=== PATIENT | female | born 1940 | race Caucasian/White ===

== ENCOUNTER 2017-10-29 15:48 | Emergency (ER) | payer OTHER ==
--- NOTE | 2017-10-29 16:10 | EDPHY ---
HPI/HX/ROS/PE/MDM Narrative: CHIEF COMPLAINT: Head trauma, perseverating after mechanical fall, Limited trauma plus HISTORY OF PRESENT ILLNESS: The patient is a 77 y/o female with a history of hypertension arriving via EMS as a limited trauma plus activation for head trauma and perseverating after a mechanical fall from standing. She was leaving a friend's house when she missed a step and fell, hitting her head with approximately 10 cc of blood on the ground. The fall was witnessed by her daughter who reports she lost consciousness for 20 second after striking the back of her head. She has no memory of the fall. She has associated headache, neck pain, and jaw pain. She denies numbness, tingling, weakness, chest pain, abdominal pain, or any other injuries. She denies history of blood clots. She denies taking blood thinners, except for aspirin. No chest pain, palpitations, shortness of breath, lightheadedness, or syncope associated with the fall. Patient reports being otherwise well. No recent vomiting or diarrhea. No recent fevers or chills, urinary complaints, lightheadedness. REVIEW OF SYSTEMS: Aside from elements discussed in the HPI, a comprehensive 10-point review of systems was reviewed and is negative. PAST MEDICAL HISTORY: Hypertension SOCIAL HISTORY: Daughter at bedside, lives in [place], PCP: Dr. Kurtz VITAL SIGNS: Reviewed by me; see NN. GENERAL: Well-developed, well-nourished, frequently stating "I do not know how I got here so fast ", in no acute distress. HEENT: Head: Small laceration over the right occipital parietal area. Bleeding is well controlled. Bandaged. Face: Atraumatic. PERRL, EOMI, no nystagmus. Oropharynx: No trauma, normal occlusion. No tenderness on examination of the jaw although the patient states the jaw feels sore. Neck: In a cervical collar. Tenderness around C3. CHEST: Nontender, no subcutaneous air palpable. LUNGS: Clear to auscultation bilaterally, breath sounds are equal. CARDIAC: Regular rate and rhythm, no rubs, murmurs or gallops. ABDOMEN: Soft, nontender, nondistended, bowel sounds normal. BACK: No CVA tenderness, no spinal tenderness. EXTREMITIES: No trauma noted, normal range of motion. PULSES: 2+ and equal throughout. NEURO: Alert and oriented x3, cranial nerves are intact throughout, normal motor , normal sensation. SKIN: Warm and dry, no rash. ED Course: The patient presents with headache, neck pain, jaw pain, and perseverating behavior after a mechanical fall. On exam she has tenderness at C3 and in her jaw bilaterally. She has a normal neuro exam. She reports no other pain or injuries. She is not on anticoagulants. She has an scalp laceration. CT Head and cervical spine CT were obtained. I viewed the images myself on the PACS system. The radiologist interpretation is no acute findings on the CT scan of the head except for soft tissue injury without fracture over right parietal bone, degenerative C spine and wedging in T2. I discussed the x-ray findings with the patient. No tenderness at the upper thoracic spine. 1709: The CT scans are negative for acute traumatic findings with the exception of soft tissue swelling. Cervical collar was removed. Patient's laceration is small curvilinear laceration over the right parietal area. Cleaned and repaired. 1749: Patient's laceration has been repaired with three boom. I feel she is safe to be released at this time. Follow up instructions and return precautions given. She agrees to this course of action. MDM: Differential diagnosis of fall in the elderly was considered including but not limited to intracranial injury, long bone and pelvic bone fracture, spinal injury, intrathoracic injury, extremity injury, intra-abdominal injury, lacerations, abrasions, and contusions. - Data Points Imaging Results: CT Cervical Spine Impression: 1. Mild to moderate anterior wedge compression fracture superior endplate of T2 of indeterminate age. No retropulsion of fracture fragment. 2. Degenerative disk disease mid cervical spine most prominent from C3-C4 through C5-C6 as well as facet hypertrophy from C2-C3 through the upper thoracic spine right side greater than left. Findings discussed with Nohemi Bacon MD at 17:06 hour, 10/29/2017. CT Head Impression: 1. Mild age-related atrophy. 2. No hemorrhage, mass effect, or definite acute peripheral infarct. 3. Mild nonspecific hypodensities in the white matter of bilateral cerebral hemispheres. Differential diagnosis includes microvascular ischemic disease, post-infectious/ post-inflammatory sequela, atypical demyelinating disease, or migraine-related sequela. Small white matter lacunar infarcts may also have this appearance. 4. Contusion and laceration of the right posterior parietal bone superiorly without underlying fracture. If symptoms worsen, additional imaging may be necessary. Findings discussed with the medical records technician with Nohemi Bacon MD at 16: 59 hour, 10/29/2017. Medications Given: Discontinued Medications Hydrocodone Bitart/Acetaminophen ([place] 5/325) 1 tab PO EDNOW ONE Stop: 10/29/17 18:00 Last Admin: 10/29/17 18:06 Dose: 1 tab General Initial Vital Signs: Initial Vital Signs Temperature (C) 36.9 C 10/29/17 16:03 Heart Rate 76 10/29/17 16:03 Respiratory Rate 20 10/29/17 16:03 Blood Pressure 170/126 H 10/29/17 16:03 O2 Sat (%) 92 10/29/17 16:03 O2 Delivery Mode Room Air Allergies/Adverse Reactions: Seasonal Allergy (Uncoded 10/29/17 16:09) Home Medications: Medication Instructions Recorded Atorvastatin Calcium 10/29/17 Lisinopril 10/29/17 [place] 5/325 (*) 10/29/17 Ropinirole HCl 10/29/17 Departure - Departure Disposition: Home, Routine, Self-Care Clinical Impression: Head injury Qualifiers: Encounter type: initial encounter Qualified Code(s): S09.90XA - Unspecified injury of head, initial encounter Scalp laceration Qualifiers: Encounter type: initial encounter Qualified Code(s): S01.01XA - Laceration without foreign body of scalp, initial encounter Cervical sprain Qualifiers: Encounter type: initial encounter Qualified Code(s): S13.9XXA - Sprain of joints and ligaments of unspecified parts of neck, initial encounter Condition: Good Instructions: Cervical Strain (ED), Laceration (ED), Head Injury (ED) Additional Instructions: Okay to use Tylenol as needed for mild headache pain. Okay to take Vicodin as needed for chronic pain. Watch for signs of significant head injury, these would include seizure, significant altered mental status, severe headache, vomiting, inability to walk , weakness or numbness on one side of your body, or other worsening of condition. Expect more discomfort in your neck and back of her head tomorrow. This should improve gradually with Tylenol, Vicodin, ice. Keep the scalp wound clean and dry. Use care when combing her hair. Clean staple line with a mixture of hydrogen peroxide and water. Apply a thin layer of antibiotic cream. Staple removal in 7-10 days. Watch for signs of infection. No soaking head in water. Showers are ok. Referrals: Alvin Escamilla [Doctor of Osteopathy] - As per Instructions Report Scribed for: Nohemi Bacon Report Scribed by: Jami Cummings Date of Report: 10/29/17 Time of Report: 16:11 Physician Review and Approval Statement: Portions of this note were transcribed by a director biomedical engineering. I personally performed a history, physical exam, medical decision making, and confirmed accuracy of information the transcribed note.
[2017-10-29] MEDS ORDERED: HYDROCODONE/APAP 5/325 TAB PO ONE (17:59)
[2017-10-29 18:14] VITALS: BP 168/95; PULSE 75; RESP 18; TEMP 98.6; O2SAT 96
== END 2017-10-29 18:12 | disposition home or self-care (01) ==
LOC: EDUNIT#
DX: S01.01XA Laceration without foreign body of scalp, initial encounter (principal); S13.9XXA Sprain of joints and ligaments of unspecified parts of neck, initial encounter; I10 Essential (primary) hypertension; W01.198A Fall on same level from slipping, tripping and stumbling with subsequent striking against other object, initial encounter; Y92.009 Unspecified place in unspecified non-institutional (private) residence as the place of occurrence of the external cause